=== PATIENT | female | born 1945 | race Caucasian/White ===

== ENCOUNTER 2022-08-17 22:30 | Emergency (ER) | payer OTHER ==
[~2022-08-17] VITALS: Ht 154.9 cm; Wt 63.5 kg
[2022-08-17 22:40] VITALS: BP_SYST 162
--- NOTE | 2022-08-17 22:40 | NUR ---
Patient triaged and placed in waiting room. VSS and patient appears in no acute distress at this time. Accompanied by daugther, awaiting available bed, and MD notified of need for MSE.
--- NOTE | 2022-08-17 22:42 | NUR ---
ER examining patient in the triage room.
[2022-08-17] MEDS ORDERED: LISI1TAB53 PO (23:19)
--- NOTE | 2022-08-17 23:34 | NUR ---
Patient given written and verbal discharge instructions and verbalizes understanding. ER MD discussed with patient the results and treatment provided. Patient in stable condition. ID arm band removed. Rx of Lisinopril-Hctz 10-12.5 given. Patient educated on pain management and to follow up with PMD. Pain Scale 0/10. Opportunity for questions provided and answered. Medication side effect fact sheet provided.
[2022-08-17 23:38] VITALS: BP_SYST 161
== END 2022-08-17 23:38 | disposition home or self-care (01) ==
LOC: SED 22:30
DX: I10 Essential (primary) hypertension (principal); Z79.899 Other long term (current) drug therapy
CPT/HCPCS: 93005; 99283